=== PATIENT | male | born 1955 | race Caucasian/White ===

== ENCOUNTER 2019-03-04 09:39 | Outpatient (CLI) | payer MEDICAID ==
--- NOTE | 2019-02-26 08:20 | NUR ---
NO ANSWER ON HIS PHONE. TRIED HIS MOM'S HOME PHONE NO ANSWERING MACHINE
--- NOTE | 2019-03-03 09:12 | NUR ---
RESCHEDULED FOR 03/04
[2019-03-04] VITALS (11 sets, daily range): BP systolic 87–104; BP diastolic 58–69; PULSE 56–70
[~2019-03-04] VITALS: Ht 182.9 cm; Wt 57.0 kg
[~2019-03-04 09:39] MED LIST: ATIVAN 1MG T1 MG/TAB PO; DESYREL 50MG50 MG PO; MOBIC 7.5MG7.5 MG PO; NEURONTIN300 MG/CAP PO; NO HOME MEDICATIONS
--- NOTE | 2019-03-04 10:20 | NUR ---
PT BROUGHT INTO CT AND POSITIONED ON TABLE. MONITORING EQUIPMENT PLACED. IMAGES DONE AND SENT
--- NOTE | 2019-03-04 10:35 | NUR ---
SAMPLES TAKEN X2. PROCEDURE COMPLETE. WAITING 5 MIN TO RECHECK LUNG SITE FOR BLLEDING OR PNUEMO.
--- NOTE | 2019-03-04 10:40 | NUR ---
PT HAS NO BLEEDING OR PNUEMO. PT TAKEN BY CART TO EU 9. PT TRANSFERS WELL TO BED. SITE IS CDI. REPORT TO RONDA ROMANO. PT HAS CALL LIGHT IN REACH AND IS WATCHING TV
--- NOTE | 2019-03-04 12:49 | NUR ---
Discharge instructions given to pt.pt verbalizes understadning.INT removed,catheter tip intact.
== END 2019-03-04 12:50 | disposition home or self-care (01) ==
LOC: COL.RAD 09:39
DX: R91.8 Other nonspecific abnormal finding of lung field (principal); Z79.899 Other long term (current) drug therapy